=== PATIENT | female | born 1985 | race Caucasian/White ===

== ENCOUNTER 2023-10-05 09:33 | Inpatient (IN) ==
[2023-10-05] MEDS ORDERED: OXYTOCIN 30 UNITS/NSS 30 UNITS/500 ML BAG IV PRN ×2 (09:41→20:34)
[2023-10-05] MEDS ORDERED: LIDOCAINE 1% LOCAL 20 ML VIAL INFIL PRN (09:41)
--- NOTE | 2023-10-05 10:04 | History & Physical Report ---
Date of Service October 05, 2023 Assessment & Plan (1) Post term over 40 weeks: (2) Encounter for induction of labor: Plan admit, iv, labs. fhts categ 1. plan pitocin and arom induction. pt and partner deny ?s. plan reviewed. attempted arom, will see if yielding, if not will do later. Admission and Anticipated Discharge Date Admission Date: October 05, 2023 History of Present Illness Chief Complaint: planned induction. Primary Care Provider: Makeda Reyes MD 38yp at 40+wks yanni presents to L&D for planned induction. Denies rom, vb. +FM. No ctx. PNC c/b 1. ama 2. ivf PNL rh pos, ri, gbs neg OBH: g1 GYNH: nl paps no stds. Allergies Allergy/AdvReac Type Severity Reaction Status Date / Time No Known Allergies Allergy Unverified 10/04/23 09:30 Home Medications Medication Instructions Recorded Confirmed Type 21-iron fu-folic acid PO 03/07/23 10/04/23 History [ Complete] aspirin 81 mg tablet,delayed 81 mg PO DAILY 08/23/23 10/05/23 History release (Adult Low Dose Aspirin) Patient History Medical History (Updated 10/05/23 @ 10:03 by Marjorie Santoro MD, FACOG) Endometrial polyp removed History of chicken pox Surgical History Status post hysteroscopic polypectomy 11/2021 Status post nasal surgery Family History Grandmother (Paternal) Breast cancer Aunt Breast cancer Denies family history of Ovarian cancer Colorectal cancer Social History Smoking Status: Never smoker Do You Dip or Chew Tobacco: No; Hx Alcohol Use: No Hx Substance Use: No Preferred Language: Ug[place]an Communication Ability: Effective 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 Beliefs That Will Affect Care: None marital status: marital status details: Amber Henry [phone] Current Living Situation: Spouse Current Living Situation Comment: Lives with spouse and dog current occupational status: employed current occupation: [employer] Feels Safe at Home: Yes Safety Concerns: Feels Safe At This Time Assistive Devices: None Review of Systems as per Subjective / HPI Physical Exam Constitutional: WD/WN, vitals as above Respiratory: normal respiratory effort, lungs clear to auscultation Cardiovascular: Rate/Rhythm: regular rate and regular rhythm Gastrointestinal (Abdomen): soft gravid nt efw 7-8# Musculoskeletal: no edema nontender calves Neurologic: grossly normal Psychiatric: A+Ox3, euthymic affect Genitourinary: Manual OB Exam: + cervical dilation (2-3cm) and + amniotic fluid (arom, attempted. ? results) OB Exam Monitor Tracing: + external FHT monitor used, + external uterine monitor used (no ctx), + category I and + normal FHT variability Results & Data Vital Signs (Past 12 Hours) Vital Signs Pulse BP 10/05/23 09:57 85 121/79 Code Status & VTE Plan VTE Prophylaxis Plan VTE Prophylaxis will be ordered: No Coding Level of Care Code None Diagnoses Post term over 40 weeks O48.0 Encounter for induction of labor Z34.90
[2023-10-05 10:17] LABS: Hematocrit (blood only) 33.9 % (37.0-47.0); Hemoglobin 11.5 g/dl (12.0-16.0); Mean Corpuscular Hemoglobin 30.3 pg (25.0-34.0); Mean Corpuscular Hgb Conc 33.9 g/dL (32.0-36.0); Mean Corpuscular Volume 89.4 fL (80.0-100.0); Mean Platelet Volume 10.6 fL (9.4-12.4); Platelet Count 154 K/uL (130-400); RDW Coefficient of Variation 13.4 % (11.5-14.5); RDW Standard Deviation 43.8 fL (36.4-46.3); Red Blood Count 3.79 M/uL (4.20-5.40)
[2023-10-05] MEDS: OXYTOCIN 30 UNITS/NSS 30 UNITS/500 ML BAG IV PRN (10:17)
[2023-10-05] MEDS: LACTATED RINGER'S 1,000 ML IV PRN (10:17)
--- NOTE | 2023-10-05 14:34 | Labor Progress Brief Note ---
Date of Service October 05, 2023 Subjective pt doing well. no pain issues. no leaking after attempted rom. Assessment & Plan (1) Encounter for induction of labor: (2) Post term over 40 weeks: Plan will see how arom helps contraction pattern. c/w pit. fhts categ 1. Admission and Anticipated Discharge Date Admission Date: October 05, 2023 Physical Exam Constitutional: WD/WN, vitals as above Genitourinary: Manual OB Exam: + cervical dilation 4 cm, + cervical effacement (75%) and + station -2 OB Exam Monitor Tracing: + external FHT monitor used, + external uterine monitor used (q3-4 pit infusing), + category I and + normal FHT variability Results & Data Vital Signs (Past 12 Hours) Vital Signs Temp Pulse Resp BP 10/05/23 14:25 65 113/69 10/05/23 13:17 65 125/77 10/05/23 11:38 68 124/66 10/05/23 10:22 88 138/84 10/05/23 09:57 85 121/79 10/05/23 09:48 98.6 F 85 18 121/79 Coding Level of Care Code None Diagnoses Encounter for induction of labor Z34.90 Post term over 40 weeks O48.0
[2023-10-05] MEDS: fentANYL 2 MCG/ML BUPIVacaine 0.125%-NSS 100ML BAG ONE (16:06)
[2023-10-05] MEDS: BUPIVACAINE 0.25% PF 30 ML VIAL ONE (16:12)
[2023-10-05] MEDS: SODIUM CHLORIDE 0.9% PF INJ 10 ML VIAL ONE (16:12)
[2023-10-05] MEDS: LIDOCAINE 2%/EPINEPHRINE 1:200,000 20 ML PF ONE (16:12)
[2023-10-05] MEDS ORDERED: diphenhydrAMINE 50 MG/ML VIAL IV PRN (16:50)
[2023-10-05] MEDS ORDERED: SODIUM CHLORIDE 0.9% PF INJ 10 ML VIAL EPI PRN (16:50)
[2023-10-05] MEDS ORDERED: fentANYL 2 MCG/ML BUPIVacaine 0.125%-NSS 100ML BAG EPI PRN (16:50)
[2023-10-05] MEDS ORDERED: NALOXONE HCL 0.4 MG/1 ML VIAL/CARP IV PRN (16:50)
[2023-10-05] MEDS ORDERED: fentaNYL citrate PF 100 MCG/2 ML VIAL EPI PRN (16:50)
[2023-10-05] MEDS ORDERED: NALOXONE HCL 1 MG in SODIUM CHLORIDE 0.9% 1,000 ML IV PRN (16:50)
[2023-10-05] MEDS ORDERED: NALBUPHINE HCL 5 MG in SYRINGE 0 ML IV PRN (16:50)
[2023-10-05] MEDS ORDERED: ePHEDrine sulfate 50 MG/ML AMP IV PRN (16:50)
[2023-10-05] MEDS ORDERED: BUPIVACAINE 0.25% PF 30 ML VIAL EPI PRN (16:50)
[2023-10-05] MEDS ORDERED: ONDANSETRON INJ 2 MG/ML 2 ML VIAL IV PRN (16:50)
[2023-10-05] MEDS ORDERED: ROPIVACAINE 0.5% PF 5 MG/ML 20 ML VIAL EPI PRN (16:50)
[2023-10-05] MEDS ORDERED: LIDOCAINE 2% MPF LOCAL 5 ML VIAL EPI PRN (16:50)
--- NOTE | 2023-10-05 16:50 | Anesthesiology Consultation ---
Date of Service October 05, 2023 Assessment & Plan Chart Review Chart Review: Acceptable Risk for Surgery and Patient NOT seen in Pre Admission Testing Consults Requested none ASA ASA2 Proposed Anesthesia Anesthesia Type: Labor Epidural Risk / Benefits Reviewed With: PT / POA / Parent / Guardian, Accepts Plan and Informed Consent Obtained History Height/Weight Height: 5 ft 5 in Weight: 107.048 kg Allergies Allergy/AdvReac Type Severity Reaction Status Date / Time No Known Allergies Allergy Unverified 10/04/23 09:30 Medications Home Medications Medication Instructions Recorded Confirmed Last Taken 21-iron fu-folic acid PO 03/07/23 10/04/23 10/05/23 [ Complete] aspirin 81 mg tablet,delayed 81 mg PO DAILY 08/23/23 10/05/23 10/05/23 release (Adult Low Dose Aspirin) Active Medications Generic Name Dose Route Start Last Admin Trade Name Freq PRN Reason Stop Dose Admin Oxytocin 30 units in 500 mls @ 13 mls/hr 10/05/23 09:41 10/05/23 13:48 Pitocin 30 Units/Nss IV 10/07/23 09:40 0.78 units/hr .Q24H PRN 13 mls/hr Labor Induction/Augmentation Titration Protocol 0.78 UNITS/HR Lactated Ringer's 1,000 mls @ 125 mls/hr 10/05/23 09:41 10/05/23 16:17 Lr IV 10/07/23 09:40 125 mls/hr .Q8H PRN Infusion L&D Protocol Protocol Past Medical History Medical History (Updated 10/05/23 @ 10:03 by Marjorie Santoro MD, FACOG) Endometrial polyp removed History of chicken pox Exercise / Class Metabolic Activity II 4-5 Yardwork/Stairs/Walk up hill Past Family History Family History Grandmother (Paternal) Breast cancer Aunt Breast cancer Denies family history of Ovarian cancer Colorectal cancer Past Surgical History Surgical History Status post hysteroscopic polypectomy 11/2021 Status post nasal surgery Past Anesthesia History No Hx of Anesthesia Complications and No Family Hx of Anesthesia Complications History of PONV No Hx of PONV and No Hx of Motion Sickness Social History Smoking Status: Never smoker Do You Dip or Chew Tobacco: No Hx Alcohol Use: No Hx Substance Use: No Physical Exam Vital Signs Last Vital Signs Temp 36.7 C 10/05/23 16:00 Pulse 81 10/05/23 16:45 Resp 18 10/05/23 09:48 BP 131/72 10/05/23 16:40 Pulse Ox 98 10/05/23 16:45 ENMT Mouth: no dentition abnormality Thyromental Distance: > or= 3.5 Finger Breadths Mallampati Class: II Neck normal visual inspection Respiratory normal respiratory effort Auscultation: lungs clear to auscultation bilaterally Cardiovascular Rate/Rhythm: regular rate and regular rhythm Psychiatric Orientation: alert Testing Laboratory Results 10/05/23 09:51
--- NOTE | 2023-10-05 17:14 | Labor Progress Brief Note ---
Date of Service October 05, 2023 Subjective comfortable after epidural. Assessment & Plan (1) Encounter for induction of labor: (2) Post term over 40 weeks: Plan good cx change. fhts categ 1. c/w pit. Admission and Anticipated Discharge Date Admission Date: October 05, 2023 Physical Exam Constitutional: WD/WN, vitals as above Genitourinary: Manual OB Exam: + cervical dilation 5 cm, + cervical effacement 80% and + station -1 OB Exam Monitor Tracing: + external FHT monitor used, + external uterine monitor used (q3 pit at 13), + category I and + normal FHT variability Results & Data Vital Signs (Past 12 Hours) Vital Signs Temp Pulse Resp BP Pulse Ox 10/05/23 17:10 69 99 10/05/23 17:05 95 H 98 10/05/23 17:00 79 99 10/05/23 16:56 88 134/81 10/05/23 16:55 99 H 99 10/05/23 16:50 87 97 10/05/23 16:45 81 18 98 10/05/23 16:40 85 131/72 99 10/05/23 16:39 100 H 93 10/05/23 16:35 79 138/70 99 10/05/23 16:30 18 10/05/23 16:30 18 10/05/23 16:30 99 10/05/23 16:30 86 10/05/23 16:30 77 141/76 H 10/05/23 16:25 97 10/05/23 16:25 75 10/05/23 16:25 84 139/82 10/05/23 16:20 99 10/05/23 16:20 83 10/05/23 16:20 80 145/76 H 10/05/23 16:17 77 141/78 H 10/05/23 16:15 84 98 10/05/23 16:14 82 130/78 10/05/23 16:10 72 97 10/05/23 16:08 77 146/63 H 10/05/23 16:05 68 99 10/05/23 16:00 98.1 F 81 98 10/05/23 15:58 78 90 10/05/23 15:55 72 99 10/05/23 15:50 84 96 10/05/23 15:45 71 100 10/05/23 15:40 73 99 04/12/24 14:25 65 113/69 10/05/23 14:00 98.2 F 10/05/23 13:17 65 125/77 10/05/23 12:00 98.1 F 10/05/23 11:38 68 124/66 10/05/23 10:22 88 138/84 10/05/23 09:57 85 121/79 10/05/23 09:48 98.6 F 85 18 121/79 Coding Level of Care Code None Diagnoses Encounter for induction of labor Z34.90 Post term over 40 weeks O48.0
--- NOTE | 2023-10-05 20:33 | Delivery Summary ---
Vaginal Delivery Summary Date of Service October 05, 2023 Vaginal Delivery Summary and 2nd Degree LAC CTSP for delivery. By the time of my arrival, cephalic delivered and pt stating "i didn't even push." Without much if any further expulsive efforts there was delivery of a viable nale Apgars 8, 9 via over 2nd degree perineal laceration. Mouth and nose bulb suctioned. Infant was vigorous and crying at . Cord clamped at 60 seconds of life and to maternal abdomen where the cord was then doubly clamped and cut. Placenta delivered spontaneously and intact, three-vessel cord. Hemostasis achieved with dilute pitocin and uterine massage and drainage of the bladder for approximately 50 cc under sterile conditions. Cervix and sulci intact. Small left introital cyst excised. Laceration repaired in routine fashion with 3-0 vicyrl. EBL 300 cc. QBL pending calculation by nursing and staff. Mother and baby stable in recovery. [facility] Vaginal Delivery Charge Delivery Type Details: and 2nd Degree LAC
[2023-10-05] MEDS ORDERED: oxyCODONE/ACETAMINOPHEN 5mg/325mg TAB PO PRN (20:34)
[2023-10-05] MEDS ORDERED: ACETAMINOPHEN 325 MG TAB PO PRN (20:34)
[2023-10-05] MEDS ORDERED: HYDROCORTISONE ACETATE 25 MG SUPP PR PRN (20:34)
[2023-10-05] MEDS ORDERED: bisacodyL 10 MG SUPP PR PRN (20:34)
[2023-10-05] MEDS: OXYTOCIN 20 UNITS/LR 1,002 ML IV SCH (21:42)
[2023-10-05] MEDS: fentaNYL citrate PF 100 MCG/2 ML VIAL ONE (21:44)
[2023-10-05] MEDS: DIPHTHER/TETAN/PERTUS Vaccine (Tdap, Adol/Adult) 0.5mL IM ONE (21:44)
[2023-10-05] MEDS: ePHEDrine sulfate 50 MG/ML AMP ONE (21:44)
[2023-10-05] MEDS: DOCUSATE SODIUM 100 MG CAP PO SCH (23:07)
[2023-10-05] MEDS: BENZOCAINE 20% SPRY 85 APPLN/85 GM CAN EXT PRN (23:08)
--- OUTSIDE RECORDS SUMMARY | 2023-10-06 02:59 | External Medical Summary | Summary of Care ---
Author Name Unknown Organization [facility] [address] [address] Phone [phone] Care Team Providers Care Header Setup Operator Name Role Phone Makeda Reyes MD Primary Care Provider [phone] Reason for Visit * Reason Comments Follow Up Skin check- no acute concerns at this time Encounter Details Date Type Department Care Team (Late st Contact Info) Description 10/04/2023 1:00 PM EDT Office Visit Dermatology [facility] [address] [place] [id number] Heather Urban PA-C [address] [place] [phone] Skin exam, screening for cancer*; Jonas angioma; Atypical nevus of right thigh Allergies No known active allergiesdocumented as of this encounter (statuses as of 10/04/2023) Medications Medication Sig Dispensed Refills Start Date End Date Status Pre- Formula Oral Tablet Take 1 Tablet by mouth in the morning. 0 Active Progesterone 200 MG Oral Capsule (Prometrium) 1 tablet vaginally 3 times daily 90 Capsule 3 11/30/2022 Active Additional Information Patient not taking.Reported on 10/04/2023 Estradiol 2 MG Oral Tablet (Estrace) Take 3 tablets by mouth daily at bedtime 270 Tablet 3 12/25/2022 Active Additional Information Patient not taking.Reported on 10/04/2023 Aspirin 81 MG Oral Tablet Chewable (Aspirin Low Dose) Take 1 Tablet by mouth in the morning. 0 Active documented as of this encounter (statuses as of 10/04/2023) Active Problems Problem Noted Date Diagnosed Date History of ATN 09/15/2022 Overview: Dansih baldwin L thigh 08/2021 Migraines documented as of this encounter (statuses as of 10/04/2023) Immunizations Name Administration Dates Next Due COVID-19 mRNA, LNP-s, No Pre serve, 2-Dose Series (Moderna) 04/28/2021,07/21/2020,06/21/2020 DTP Vaccine 02/13/1992 Hepatitis B, 0-19 yrs 12/31/2002,03/09/2000,02/24 MMR - Measles/Mumps/Rubella Vaccine 03/18/1999,0 09/27/1988 Meningococcal MCV4P Conjugat e Vaccine (Menactra) 11/06/2007 OPV - Polio Virus Vaccine (Oral) 992,03/25/1989,1987,08/23 Seasonal Influenza Virus Vac cine, Unspecified Formulation 03/31/2022,03/31/2021 TDAP (age 11 and older)(Adacel) 08/28/2018 documented as of this encounter Social History Tobacco Use Types Packs/Day Years Used Date Smoking Tobacco: Never Smokeless Tobacco: Never Alcohol Use Standard Drinks/Week Comments Not Currently 0 (1 standard drink = 0.6 oz pur e alcohol) AUDIT-C Answer Date Recorded Q1: How often do you have a drink containing alc ohol? Monthly or less 01/27/2021 Q2: How many drinks containi ng alcohol do you have on a typical day when you are drinking? 1 or 2 01/27/2021 Q3: How often do you have si x or more drinks on one occasion? Never 01/27/2021 PHQ-2 Answer Date Recorded PHQ Adult Total Score 0 01/27/2021 Hunger Vital Sign Answer Date Recorded Within the past 12 months, y ou worried that your food would run out before you got the money to buy more. Never true 04/19/20 22 Within the past 12 months, t he food you bought just didn't last and you didn't have money to get more. Never true 04/19/2022 Sex and Gender Information Value Date Recorded Sex Assigned at Female 04/19/2022 8:04 AM EDT Gender Identity Female 04/19/2022 8:04 AM EDT Sexual Orientation Choose not to disclose 2021 8:04 AM EDT Job Start Date Occupation Industry Not on file Not on file Not on file documented as of this encounter Progress Notes * Heather Urban PA-C - 10/04/2023 1:03 PM EDT SUBJECTIVE: History of Present Illness: Viviana Salguero is a 38 year old female seen today for follow up of skin check. Date Last Appointment: 09/15/2022 (in office) Hx Spitz nevi No hx of skin cancer No fmhx of skin cancer No hx of tanning bed use +sunburns in childhood Wears sunscreen on face daily and on rest of body when spending time outdoors REVIEW OF SYSTEMS: SKIN: No other new or changing moles. HEME/LYMPH: No new or enlarging lumps or bumps. MEDICA TIONS: Current Outpatient Medications Medication Sig Dispense Refill Pre-Ankush Formula Oral Tablet Take 1 Tablet by mouth in the morning. Aspirin 81 MG Oral Tablet Chewable (Aspirin Low Dose) Take 1 Tablet by mouth in the morning. Progesterone 200 MG Oral Capsule (Prometrium) 1 tablet vaginally 3 times daily (Patient not taking:Reported on 10/04/2023) 90 Capsule 3 Estradiol 2 MG Oral Tablet (Estrace) Take 3 tablets by mouth daily at bedtime (Patient not taking: Reported on 10/04/2023) 270 Tablet 3 No current facility-administered medications for this visit. ALLERG IES: Patient has no known allergies. OBJECTIVE: GEN: Healthy, alert, no distress, appears oriented, pleasant, and cooperative. SKIN: Detailed exam of hair, face including lids and lips, neck, chest, abdomen, back, bilateral upper ext. (arm, hand, fingers), bilateral lower ext. (leg, foot, toes), and palpation of scalp completed and are normal except: 1. Scar- R thigh 2. Abdomen- tiny purple and red papules ASSESS MENT/PLAN: 1. Hx NMSC - no evidence of recurrence Discussed sun protection with patient including proper use of sunscreens and protective clothing. ABCDs explained 2. Jonas angioma. Benign nature was discussed and no further intervention needed. Advised to call with any changes. Follow-up: 1 year There were no barriers tolearning and no other pain was related to today's visit. The patient and/or person accompanying patient demonstrates understanding of the visit and treatment. Heather Urban PA-C 10/04/2023 1:03 PM documented in this encounter Nursing Notes * Shira Byrd LPN - 10/04/2023 12:58 PM EDT Patient identified by name and date of . Do you have any concerns about pain management for today's visit? No Living Will or Advance Directive for Health Care as noted on problem list. [facility] is a way you can talk to your provider online through e-mail. Would you like to sign up? I can activate it for you? ALREADY ACTIVE Chief Complaint Patient presents with Follow Up Skin check- no acute concerns at this time documented in this encounter Plan of Treatment Upcoming Encounters Date Type Department Care Team (Late st Contact Info) Description 11/19/2024 1:20 PM EDT Office Visit Dermatology [facility] [address] [place] [phone] Heather Urban PA-C [address] [place] [phone] Health Maintenance Due Date Last Done Comments HPV/Co-Test 2017 Depression Screening 01/27/2022 01/27/2021 COVID-19 Vaccine ( season) 2023 05/10/2022, 04/28/2021, 07/21/2020, Additional history exists Influenza Vaccine (FLU shot) (Season Ended) 2024 03/31/2022, 03/31/2021 Cervical Cancer Screening 03/14/2024 Pap Smear 03/14/2024 03/14/2021 Diabetes Screening 04/19/2025 04/19/2022, 01/31/2021 DTaP,Tdap,and Td Vaccines (3 - Td or Tdap) 08/28/2028 08/28/2018, 02/13/1992 Hepatitis B Completed 12/31/2002, 02/23, 03/18/1999 MENINGOCOCCAL (MENACTRA/MENVEO) Aged Out 11/06/2007 No longer eligible based on patient's age to complete this topic GARDASIL-HPV IMMUNIZATION SERIES Aged Out No longer eligible based on patient's age to complete this topic Pneumococcal Vaccine: Pediatrics (0 to 5 Years) and At-Risk Patients (6 to 64 Years) Aged Out No longer eligible based on patient's age to complete this topic documented as of this encounter Medical Devices Not on filedocumented as of this encounter Visit Diagnoses Diagnosis Skin exam, screening for cancer- Primary Screening for malignant neoplasm of the skin Jonas angioma Nevus, non-neoplastic Atypical nevus of right thigh documented in this encounter Care Teams Header Setup Operator Relationship Specialty Start Date End Date Makeda Reyes MD [address] [place] [address] PCP - General Internal Medicine 01/27/21 documented as of this encounter
[2023-10-06] MEDS: BUPIVACAINE 0.25% PF 30 ML VIAL EPI STA (05:26)
[2023-10-06] MEDS: LIDOCAINE 2%/EPINEPHRINE 1:200,000 20 ML PF EPI STA (05:26)
[2023-10-06] MEDS: fentaNYL citrate PF 100 MCG/2 ML VIAL EPI STA (05:26)
[2023-10-06] MEDS: SODIUM CHLORIDE 0.9% PF INJ 10 ML VIAL EPI STA (05:26)
--- NOTE | 2023-10-06 07:12 | Obstetrical Progress Note ---
Date of Service October 06, 2023 Assessment & Plan (1) care and examination: Plan stable doing well, breast/rhpos/ri. routine care. Day #:: 1 Subjective Ambulation: ambulating normally Voiding: no voiding problems Diet Tolerance:: regular diet Lochia:: Small Feeding Type:: breast feeding doing well. no pain issues. bottom is sore. Constitutional: + as per Subjective / HPI Physical Exam Constitutional WD/WN, vitals as above Respiratory normal respiratory effort, lungs clear to auscultation Cardiovascular Rate/Rhythm: regular rate and regular rhythm Gastrointestinal (Abdomen) Inspection/Auscultation: abdomen normal to inspection Percussion/Palpation: abdomen soft Fundus firm 2cm down Musculoskeletal nt calves Neurologic grossly normal Psychiatric A+Ox3, euthymic affect Results & Data Vital Signs (Past 12 Hours) Vital Signs Temp Pulse Pulse Resp BP BP Pulse Ox 10/06/23 03:45 97.9 F 71 18 119/76 97 10/05/23 22:48 97.7 F 95 H 18 131/81 98 10/05/23 22:31 98 H 124/67 10/05/23 22:30 18 10/05/23 22:16 96 H 127/66 10/05/23 22:01 103 H 127/76 10/05/23 22:00 18 10/05/23 21:54 89 131/65 10/05/23 21:51 92 H 153/79 H 10/05/23 21:49 95 H 161/73 H 10/05/23 21:31 100 H 138/68 10/05/23 21:30 18 10/05/23 21:16 105 H 142/79 H 10/05/23 21:15 18 10/05/23 21:05 93 H 147/76 H 10/05/23 21:00 20 10/05/23 20:49 95 H 145/65 H 10/05/23 20:45 18 10/05/23 20:45 93 H 97 10/05/23 20:41 84 119/66 10/05/23 20:40 88 97 10/05/23 20:35 89 96 10/05/23 20:30 18 10/05/23 20:30 103 H 98 10/05/23 20:29 88 121/75 10/05/23 20:26 90 118/85 10/05/23 20:25 93 H 97 10/05/23 20:20 102 H 97 10/05/23 20:15 105 H 98 10/05/23 20:12 104 H 90 10/05/23 20:11 96 H 149/82 H 10/05/23 20:10 107 H 93 10/05/23 20:06 88 88 L 10/05/23 20:05 105 H 99 10/05/23 20:01 97 H 90 10/05/23 20:00 89 100 10/05/23 19:55 92 H 100 10/05/23 19:50 81 99 10/05/23 19:48 82 91 10/05/23 19:45 82 100 10/05/23 19:42 82 84 L 10/05/23 19:41 84 112/66 10/05/23 19:40 76 100 10/05/23 19:35 85 100 10/05/23 19:30 79 99 10/05/23 19:28 72 109/57 L 10/05/23 19:25 85 100 10/05/23 19:20 82 99 10/05/23 19:15 86 18 98 10/05/23 19:11 85 124/58 L 89 L 10/05/23 19:10 82 99 O2 Del Method 10/06/23 03:45 Room Air 10/05/23 22:48 10/05/23 22:31 10/05/23 22:30 10/05/23 22:16 10/05/23 22:01 10/05/23 22:00 10/05/23 21:54 10/05/23 21:51 10/05/23 21:49 10/05/23 21:31 10/05/23 21:30 10/05/23 21:16 10/05/23 21:15 10/05/23 21:05 10/05/23 21:00 10/05/23 20:49 10/05/23 20:45 10/05/23 20:45 10/05/23 20:41 10/05/23 20:40 10/05/23 20:35 10/05/23 20:30 10/05/23 20:30 10/05/23 20:29 10/05/23 20:26 10/05/23 20:25 10/05/23 20:20 10/05/23 20:15 10/05/23 20:12 10/05/23 20:11 10/05/23 20:10 10/05/23 20:06 10/05/23 20:05 10/05/23 20:01 10/05/23 20:00 10/05/23 19:55 10/05/23 19:50 10/05/23 19:48 10/05/23 19:45 10/05/23 19:42 10/05/23 19:41 10/05/23 19:40 10/05/23 19:35 10/05/23 19:30 10/05/23 19:28 10/05/23 19:25 10/05/23 19:20 10/05/23 19:15 10/05/23 19:11 10/05/23 19:10
[2023-10-06] MEDS: PRENATAL VITAMIN 1 TAB PO SCH (07:37)
[2023-10-06] MEDS: IBUPROFEN 600 MG TAB PO PRN (07:37)
--- NOTE | 2023-10-06 08:06 | Anesthesia Procedure Note ---
Date of Service October 06, 2023 Anesthesia Post Epidural Note Vital Signs Vital Signs: Temp Pulse Resp BP Pulse Ox O2 Del Method 97.9 F 71 18 119/76 97 Room Air 10/06/23 03:45 10/06/23 03:45 10/06/23 03:45 10/06/23 03:45 10/06/23 03:45 10/06/23 03:45 Pain Intensity Bilateral Abdomen: Pain Intensity: 0 Perineal: Pain Intensity: 3 Notes Mental Status: alert / awake / arousable and participated in evaluation Nausea / Vomiting: adequately controlled Pain: adequately controlled Airway Patency, RR, SpO2: stable & adequate BP & HR: stable & adequate Hydration State: stable & adequate Neuraxial Anesthesia: was administered and sensory block is resolving Anesthetic Complications: no major complications apparent and Pt Satisfied with anesthetic care Epidural: Removed without complications and With tip intact
--- NOTE | 2023-10-07 09:25 | Obstetrical Progress Note ---
Date of Service October 07, 2023 Assessment & Plan (1) care and examination: Plan Doing well, plan d/c, instructions given. Day #:: 2 Subjective Ambulation: ambulating normally Voiding: no voiding problems Passing Gas:: Yes Diet Tolerance:: regular diet Lochia:: Small Feeding Type:: breast feeding Physical Exam Constitutional WD/WN, vitals as above Respiratory normal respiratory effort, lungs clear to auscultation Cardiovascular RRR, no murmur, no edema Extremities: no calf tenderness and no edema Gastrointestinal (Abdomen) soft, nt, nd ff/nt at u Psychiatric A+Ox3, euthymic affect Results & Data Vital Signs (Past 12 Hours) Vital Signs Temp Pulse Resp BP Pulse Ox O2 Del Method 10/07/23 08:05 36.4 C L 68 18 127/81 98 Room Air 10/07/23 02:10 36.7 C 67 18 118/76 97 Room Air
== END 2023-10-07 10:30 | disposition home or self-care (01) | DRG 807 ==
LOC: 4S1 09:33 → 4E2 23:03